=== PATIENT | male | born 1975 | race Caucasian/White ===

== ENCOUNTER 2020-08-23 23:37 | Emergency (ER) | payer OTHER ==
[~2020-08-23] VITALS: Ht 185.4 cm; Wt 97.5 kg
[2020-08-23 23:52] LABS: BASO # 0.1 (0.02-0.10); EOS # 0.3 (0.04-0.40); EOS % 2.9 % (0.0-4.0); HEMATOCRIT 43.3 % (42.0-52.0); HEMOGLOBIN 14.3 g/dL (13.5-18.0); LYMPH# 4.1 (1.50-4.00); MEAN CELL VOLUME 91 fl (78-100); MEAN CORPUSCULAR HEMOGLOBIN 30 pg (27-31); MEAN CORPUSCULAR HGB CONC 33 g/dL (33-37); MEAN PLATELET VOLUME 9.8 fl (7.4-10.4); PLATELET COUNT 224 K/mm3 (130-400); RED BLOOD COUNT 4.76 M/mm3 (4.20-5.60); RED CELL DISTRIBUTION WIDTH 13.7 % (11.5-14.5); WHITE BLOOD COUNT 11.4 K/mm3 (4.8-10.8)
[2020-08-24] LABS: ALBUMIN 4.3 g/dL (3.5-5.0)
[2020-08-24 00:01] LABS: POTASSIUM 3.4 mmol/L (3.5-5.1)
[2020-08-24 00:02] LABS: CALCIUM 9.2 mg/dL (8.3-10.5)
[2020-08-24 00:03] LABS: TOTAL PROTEIN 7.6 g/dL (6.4-8.3)
[2020-08-24 00:05] LABS: TOTAL BILIRUBIN 0.4 mg/dL (0.2-1.2)
[2020-08-24 00:36] LABS: URINE APPEARANCE HAZY; URINE BILIRUBIN NEGATIVE (NEGATIVE); URINE BLOOD 250 ery/uL (NEGATIVE); URINE COLOR YELLOW; URINE GLUCOSE NEGATIVE (NEGATIVE); URINE KETONE NEGATIVE (NEGATIVE); URINE LEUKOCYTE ESTERASE TRACE (NEGATIVE); URINE NITRATE NEGATIVE (NEGATIVE); URINE PROTEIN(semi-quant) TRACE mg/dL (NEGATIVE); URINE UROBILINOGEN NORMAL (NORMAL)
[2020-08-24 00:37] LABS: URINE MUCUS PRESENT (NOT PRESENT)
[2020-08-24 02:20] VITALS: BP 122/73
== END 2020-08-24 02:20 | disposition short-term general hospital (02) ==
LOC: ED 23:37
PROVIDERS: Nurse Practitioner
DX: N13.2 Hydronephrosis with renal and ureteral calculous obstruction (principal); F17.200 Nicotine dependence, unspecified, uncomplicated
CPT/HCPCS: J1885; J2405; J3010; J7030

== ENCOUNTER 2020-08-28 09:40 | Emergency (ER) | payer OTHER ==
[~2020-08-28] VITALS: Ht 185.4 cm; Wt 97.7 kg
[2020-08-28 10:36] LABS: BASO # 0.1 (0.02-0.10); EOS # 0.3 (0.04-0.40); EOS % 2.8 % (0.0-4.0); HEMATOCRIT 46.4 % (42.0-52.0); HEMOGLOBIN 15.1 g/dL (13.5-18.0); MEAN CELL VOLUME 92 fl (78-100); MEAN CORPUSCULAR HEMOGLOBIN 30 pg (27-31); MEAN CORPUSCULAR HGB CONC 33 g/dL (33-37); MEAN PLATELET VOLUME 10.2 fl (7.4-10.4); MONO # 0.9 (0.20-0.80); NEU # 7.2 (1.40-6.50); PLATELET COUNT 232 K/mm3 (130-400); RED BLOOD COUNT 5.06 M/mm3 (4.20-5.60); WHITE BLOOD COUNT 11.5 K/mm3 (4.8-10.8)
[2020-08-28 10:53] LABS: PH-URINE 7.5 (5.0 - 8.0); URINE APPEARANCE CLOUDY; URINE BILIRUBIN NEGATIVE (NEGATIVE); URINE BLOOD 250 ery/uL (NEGATIVE); URINE COLOR DK YELLOW; URINE GLUCOSE NEGATIVE (NEGATIVE); URINE KETONE NEGATIVE (NEGATIVE); URINE LEUKOCYTE ESTERASE 2+ (NEGATIVE); URINE NITRATE POSITIVE (NEGATIVE); URINE PROTEIN(semi-quant) TRACE mg/dL (NEGATIVE); URINE UROBILINOGEN NORMAL (NORMAL); URINE WBC 16-30 /hpf (0-3)
[2020-08-28 10:54] LABS: URINE MUCUS PRESENT (NOT PRESENT)
[2020-08-28] MEDS ORDERED: ACETAMINOPHEN-H1 TA2 PO (10:57)
[2020-08-28] MEDS ORDERED: SEPTRA DS 8001 TAB PO (12:15)
[2020-08-28] MEDS ORDERED: PERCOCET 325 MG1 TA2 PO (12:15)
[2020-08-28] MEDS ORDERED: FLOMAX0.4 MG PO (12:15)
[2020-08-28 12:40] VITALS: BP 133/56
== END 2020-08-28 12:40 | disposition home or self-care (01) ==
LOC: ED 09:40
PROVIDERS: Family Medicine
DX: N39.0 Urinary tract infection, site not specified (principal); N23 Unspecified renal colic; Z96.0 Presence of urogenital implants; Z79.891 Long term (current) use of opiate analgesic
CPT/HCPCS: J0696; J1885